=== PATIENT | female | born 1955 | race Caucasian/White ===

== ENCOUNTER 2019-01-11 13:38 | Emergency (ER) | payer BC, SELFPAY ==
[2019-01-11 13:42] VITALS: BP 146/86; PULSE 101; RESP 16; TEMP 36.6; O2SAT 95
--- NOTE | 2019-01-11 13:50 | DI.CT_ITS ---
SYMPTOM/DIAGNOSIS: PERSISTENT NECK PAIN, HOARSE VOICEE CERVICAL CT: CT examination of the cervical region was performed without contrast administration. Visualized portions of the upper pulmonary lobes are unremarkable. Tracheal laryngeal structures appear intact. No evidence of abscess on this noncontrast study. No significant adenopathy. Salivary glands are unremarkable. CONCLUSION: No evidence of acute process in the cervical region.
[2019-01-11] MEDS: Acetaminophen 500 MG TAB 1000 MG PO (14:01)
[2019-01-11] MEDS: Dexamethasone 4 MG TAB 12 MG PO (14:02)
[2019-01-11] MEDS: Ibuprofen 800 MG TAB PO (14:02)
[2019-01-11 14:09] LABS: Abs Immature Grans 0.02 k/cumm (0.0-0.09); Absolute Basophil Count 0.03 k/cumm (0.0-0.2); Absolute Eosinophil Count 0.15 k/cumm (0.0-0.7); Absolute Lymphocyte Count 1.84 k/cumm (1.2-3.4); Absolute Monocyte Count 0.61 k/cumm (0.11-0.7); Absolute Neutrophil Count 3.91 k/cumm (1.2-6.7); Basophils % 0.5; Eosinophils % 2.3; HCT 39.1 % (36.0-46.0); HGB 13.4 g/dL (12.0-15.5); Immature Grans % 0.3; Mean Corp. HGB Concentration 34.3 g/dL (32.0-36.0); Mean Corpuscular Hemoglobin 32.3 pg (27.0-33.0); Mean Corpuscular Volume 94.2 fL (80-95); Mean Platelet Volume 10.5 fL (8.0-11.0); Monocytes % 9.3; Neutrophils % 59.6; Platelet Count 264 x1000/uL (130-400); RBC 4.15 m/cumm (4.00-5.20); RBC Distribution Width 13.1 % (11.7-14.6); White Blood Cell Count 6.56 k/cumm (4.4-10.8)
--- NOTE | 2019-01-11 14:10 | W.ED.GENAD ---
Discharge Plan Disposition Patient Disposition: HOME Condition: Good Discharge Details Chief Complaint: Sorethroat Clinical Impression: Strep throat Primary Care Provider: None,None ED Provider: Negro Wilkes Home Meds and New Rx's Prescriptions: New amoxicillin 500 mg tablet 500 mg PO BID 10 Days Qty: 20 RF: 0 mupirocin 2 % ointment 1 applic TP TID Qty: 15 RF: 0 Continued norethindrone ac-eth estradiol [Femhrt Low Dose] 1 EACH tablet 1 ea PO DAILY RF: 0 phenazopyridine 100 MG tablet 100 mg PO PRN PRNRF: 0 phenazopyridine 100 MG tablet 100 mg PO TID Qty: 6 RF: 0 Discontinued sulfamethoxazole-trimethoprim [Bactrim DS] 1 EACH tablet 1 ea PO BID Qty: 20 RF: 0 Discharge Instructions Instructions: Strep Throat (ED) Additional Instructions: You have strep throat. Please take 500 mg of amoxicillin twice daily. If you notice any worsening of your symptoms, or any new symptoms such as vomiting, diarrhea, fever, chills, shortness of breath, chest pain, numbness, weakness, or fainting , please return immediately to the emergency department for reevaluation. Please follow up with your primary care provider as soon as possible for reassessment and reevaluation. As always, it was a pleasure participating in your medical care today. Medical Decision Making This is a pleasant 63-year-old female who presents with 8 days of sore throat, difficulty clearing her throat, and mild swelling in the submandibular region. She denies any concerning red flags of HIV, IV drug use, or immunosuppression. Exam demonstrates mild swelling in the submandibular region, and erythematous sore throat, with no evidence of peritonsillar abscess. Patient has a notable regurgitation of sputum, but no cough. She denies any difficulty swallowing or drinking. The patient's age, atypical presentation, mild to moderate swelling, differential is highest for viral URI, strep throat, however with the concerning swelling and atypical presentation differential does also include a submandibular abscess or neck mass or pathology especially with her smoking history. She shows no other signs of significant infection on her exam. We will give Decadron, NSAIDs, CT to rule out mass. 3:18 PM Strep test has returned positive, we will treat with amoxicillin. CT scan reveals no evidence of abscess, epiglottitis, or significant mass per radiology Dr. Bassett. She does have enlarged submandibular glands, but no other significant abnormalities. Patient is tolerated the Decadron and NSAIDs well, she is feeling much better. We will give her first dose of amoxicillin here. We will give mupirocin for the small irritation on her right nare. I have extensively reviewed the treatment plan and discharge instructions with the patient. I have addressed all patient concerns at this time. The patient was made aware of what symptoms to monitor for that would warrant a return to the emergency department. Discussed the plan with the patient, they demonstrate verbal understanding and agreement with our assessment and plan at this time. HPI General Date/Time Provider Initiated Documentation: 01/11/19 13:40. HPI Narrative: This is a pleasant 63-year-old female with no past medical history who presents today for evaluation of sore throat for the last 8 days, worsening with time, improved by nothing. She has not taken any NSAIDs. She denies any cough but does admit to a chronic amount of clearing her throat. She does have history of tobacco abuse in the past, but denies any history of cancer, or family history of cancer. She denies any fever or chills, she denies any headache or posterior neck pain. She does admit to some swelling or sensation of swelling in the anterior aspect of her neck just below her jaw. She denies any hemoptysis, hematochezia, melena, acholic stool, hematemesis, numbness tingling or weakness. She has no other complaints at this time. No other modifying factors. She denies any other sick contacts. Related Data Home Medications Medication Instructions Recorded Confirmed norethindrone ac-eth estradiol 1 ea PO DAILY 01/22/13 01/22/13 [Femhrt Low Dose] phenazopyridine 100 mg PO PRN PRN 01/22/13 01/22/13 phenazopyridine 100 mg PO TID #6 tab 01/22/13 amoxicillin 500 mg PO BID 10 Days #20 tab 01/11/19 mupirocin 1 applic TP TID #15 gm 01/11/19 Previous Rx's Medication Instructions Recorded phenazopyridine 100 mg PO TID #6 tab 01/22/13 amoxicillin 500 mg PO BID 10 Days #20 tab 01/11/19 mupirocin 1 applic TP TID #15 gm 01/11/19 Allergies Allergy/AdvReac Type Severity Reaction Status Date / Time shellfish derived Allergy vomits Unverified 01/22/13 11:53 General Stated Complaint: Sorethroat ELVIRA: 4 Review of Systems Review of Systems All systems reviewed & are unremarkable except as noted in HPI and below PFSH Social History Smoking/Tobacco Use Status: Never Alcohol Intake: current Alcohol Intake frequency: 0-2 drinks per day Alcohol type: wine Drug use: Never Do you feel safe at home: Yes Do you feel safe in your relationship?: Yes Exam Narrative Exam Narrative: 1.Const: Well-nourished, Well-developed, appearing stated age 2.Eyes: PERRL, no conjunctival injection, and symmetrical lids. 3.ENT: Atraumatic external nose and ears. Moist MM. Neck: Symmetric, trachea midline, No thyromegaly. Minimal swelling and tenderness in the sub-mandibular region. Mild cervical lymphadenopathy. Exam of the posterior oropharynx demonstrates mild erythema, minimal tonsillar enlargement. No evidence of unilateral swelling. No signs of peritonsillar abscess. Patient demonstrates good movement of cervical neck. There is no nuchal rigidity, no nuchal tenderness. Patient is able to flex the neck without any difficulty or significant pain. Negative Kernig's and Brudzinski sign. 4.CVS: +S1/S2, No murmurs or gallops. Peripheral pulses 2+ and equal in all extremities. Brisk capillary refill in all extremities. 5.RESP: Unlabored respiratory effort. Clear to auscultation bilaterally. No wheezes rales or rhonchi 6.GI: Soft, Nontender/Nondistended, No hepatosplenomegaly. No guarding or rebound. 7.MSK: Normocephalic/Atraumatic, Extremities w/o deformity or ttp No cyanosis or clubbing, Normal movement of all extremities 8.Skin: Warm, Dry. No rashes or lesions. There is a small erythematous crusty lesion on her right nare at the site of her nasal piercing. No evidence of abscess or significant cellulitis. 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 Sensation grossly intact, no focal neurologic deficits. 10.Psych: (AAO) x3. Appropriate mood and affect Course Vital Signs Temperature 36.6 C 01/11/19 13:42 Pulse 101 H 01/11/19 13:42 Respiratory Rate 16 01/11/19 13:42 Blood Pressure 146/86 H 01/11/19 13:42 Pulse Oximetry 95 01/11/19 13:42 Temperature 36.6 C 01/11/19 13:42 Pulse 101 H 01/11/19 13:42 Respiratory Rate 16 01/11/19 13:42 Respiratory Effort Non-Labored 01/11/19 13:46 Blood Pressure 146/86 H 01/11/19 13:42 Pulse Oximetry 95 01/11/19 13:42 Oxygen Delivery Method Room Air 01/11/19 13:42 Oxygen Flow Rate 0 01/11/19 13:42 Pain Level 1 01/11/19 13:42 Lab/Test Results Lab/Test Results: POC Strep Test-SATYA(Rapid) Start: 01/11/19 13:58 Freq: Status: Active Protocol: Document 01/11/19 13:59 AB (Rec: 01/11/19 13:59 AB [id number]) Strep test-SATYA(Rapid)-POC POC-Strep test-SATYA (Rapid) Positive POC-Strep test-SATYA (Rapid) Positive
[2019-01-11 14:31] LABS: ALT 27 U/L (12-78); AST 9 U/L (15-37); Albumin 4.1 g/dL (3.4-5.0); Alkaline Phosphatase 140 U/L (46-116); Anion Gap 9.9 mmol/L (3-11); BUN 17 mg/dL (7-18); Bilirubin, Total 0.4 mg/dL (0.2-1.0); CO2 26.1 mmol/L (21.0-32.0); CREATININE 0.67 mg/dL (0.55-1.02); Calcium 9.2 mg/dL (8.5-10.1); Chloride 105 mmol/L (98-107); Glucose 108 mg/dL (70-100); Potassium 3.7 mmol/L (3.5-5.1); Sodium 141 mmol/L (136-145); Total Protein 7.9 g/dL (6.4-8.2)
[2019-01-11] MEDS: Amoxicillin 500 MG CAP PO (15:20)
[2019-01-11 15:28] VITALS: BP 146/86; PULSE 101; RESP 16; TEMP 36.6; O2SAT 95
== END 2019-01-11 15:21 | disposition home or self-care (01) ==
LOC: ER 15:27
PROVIDERS: Emergency Provider Student in an Organized Health Care Education/Training Program
DX: J02.0 Streptococcal pharyngitis (principal)
CPT/HCPCS: 36415; 80053; 87880; 99284; 70490; 85025; J8540